=== PATIENT | male | born 1945 | race Caucasian/White ===

== ENCOUNTER 2024-07-12 18:39 | Outpatient (REF) | payer BC, MEDICAID, SELFPAY ==
[2024-07-12 20:00] LABS: Abs Immature Grans 0.11 10^3/uL (0.0-0.06); Absolute Basophil Count 0.05 10^3/uL (0.0-0.2); Absolute Monocyte Count 0.86 10^3/uL (0.1-0.8); Absolute Neutrophil Count 2.52 10^3/uL (1.2-6.7); Basophils % 0.9 %; Eosinophils % 8.6 %; HCT 41.6 % (40.0-50.0); HGB 13.6 g/dL (13.5-17.5); Immature Grans % 1.9 %; Lymphocytes % 30.8 %; MCH 31.2 pg (27.0-33.0); MCHC 32.7 % (32.0-36.0); MCV 95 fL (80-95); MPV 10.1 fL (8.0-11.0); Monocytes % 14.7 %; Neutrophils % 43.1 %; Platelet Count 320 10^3/uL (130-400); RBC 4.36 10^6/uL (4.36-5.78); RDW 13.6 % (11.8-14.1); RDW-SD 48.2 fL; WBC 5.84 10^3/uL (4.4-10.8)
[2024-07-12 20:12] LABS: Iron 52 ug/dL (65-175); Total Iron Binding Capacity 214 ug/dL (250-450)
[2024-07-12 20:25] LABS: Hemoglobin A1C 5.7 % (<5.7)
[2024-07-12 20:47] LABS: ALT 24 U/L (16-63); AST 20 U/L (15-37); Albumin 3.7 g/dL (3.4-5.0); Alkaline Phosphatase 131 U/L (46-116); Anion Gap 9.3 mmol/L (3-11); BUN 21 mg/dL (7-18); Bilirubin, Total 0.33 mg/dL (0.2-1.0); CO2 28.7 mmol/L (21.0-32.0); CREATININE 1.2 mg/dL (0.70-1.30); Calcium 9.6 mg/dL (8.5-10.1); Chloride 105 mmol/L (98-107); Estimated GFR 62.29 (mL/min/1.73m2); Folate 14.6 ng/mL (8.6-20.0); Glucose 104 mg/dL (74-106); Magnesium 2.3 mg/dL (1.8-2.4); Potassium 4.2 mmol/L (3.5-5.1); Sodium 143 mmol/L (136-145); Total Protein 7.8 g/dL (6.4-8.2); Vitamin B12 465 pg/mL (193-986); Vitamin D 25 Total 17.5 ng/mL (30-100)
[2024-07-12 21:17] LABS: NT-proBNP 99 pg/mL (<300)
[2024-07-13 15:29] LABS: Ferritin 800 ng/mL (26-388)
[2024-07-16 08:45] LABS: FSH 8.7 mIU/mL (See Note)
== END 2024-07-12 18:40 | disposition home or self-care (01) ==
LOC: LBN 18:39
PROVIDERS: PCP Legal Medicine; Visit Provider Nurse Practitioner Gerontology
DX: D51.9 Vitamin B12 deficiency anemia, unspecified (principal); E78.5 Hyperlipidemia, unspecified; I11.9 Hypertensive heart disease without heart failure; E83.42 Hypomagnesemia; R73.09 Other abnormal glucose; G89.4 Chronic pain syndrome; D52.9 Folate deficiency anemia, unspecified; R53.82 Chronic fatigue, unspecified
CPT/HCPCS: 80053; 82306; 82607; 82728; 82746; 83001; 83036; 83540; 83550; 83735; 83880; 84443; 85025

== ENCOUNTER 2024-08-30 22:35 | Outpatient (REF) | payer BC, MEDICAID, SELFPAY ==
[2024-08-30 18:15] LABS: Abs Immature Grans 0.29 10^3/uL (0.0-0.06); Absolute Basophil Count 0.05 10^3/uL (0.0-0.2); Absolute Eosinophil Count 0.15 10^3/uL (0.0-0.7); Absolute Neutrophil Count 2.76 10^3/uL (1.2-6.7); Basophils % 0.8 %; Eosinophils % 2.3 %; HCT 39.7 % (40.0-50.0); HGB 12.9 g/dL (13.5-17.5); Immature Grans % 4.4 %; Lymphocytes % 37.6 %; MCHC 32.5 % (32.0-36.0); MCV 95 fL (80-95); MPV 10.7 fL (8.0-11.0); Monocytes % 13.5 %; Neutrophils % 41.4 %; Platelet Count 240 10^3/uL (130-400); RBC 4.16 10^6/uL (4.36-5.78); RDW 13.2 % (11.8-14.1); RDW-SD 46.4 fL; WBC 6.65 10^3/uL (4.4-10.8)
[2024-08-30 18:32] LABS: Iron 55 ug/dL (65-175); Total Iron Binding Capacity 241 ug/dL (250-450); Transferrin Sat 23 % (20-55)
[2024-08-30 18:33] LABS: Bilirubin Negative (Negative); Blood Negative (Negative); Clarity Clear (Clear); Glucose Negative (Negative); Ketones Negative (Negative); Leukocyte Esterase Negative (Negative); Nitrite Negative (Negative); Specific Gravity 1.025 (1.005-1.025); Urobilinogen 0.2 mg/dL (Up to 0.2)
[2024-08-30 18:34] LABS: VALPROIC ACID 34.6 ug/mL
[2024-08-30 18:45] LABS: ALT 39 U/L (16-63); AST 24 U/L (15-37); Albumin 3.5 g/dL (3.4-5.0); Alkaline Phosphatase 115 U/L (46-116); Anion Gap 9.1 mmol/L (3-11); BUN 30 mg/dL (7-18); Bilirubin, Total 0.3 mg/dL (0.2-1.0); CO2 29.9 mmol/L (21.0-32.0); CREATININE 1.4 mg/dL (0.70-1.30); Calcium 8.6 mg/dL (8.5-10.1); Chloride 105 mmol/L (98-107); Estimated GFR 51.77 (mL/min/1.73m2); Ferritin 950 ng/mL (26-388); Glucose 100 mg/dL (74-106); Potassium 3.9 mmol/L (3.5-5.1); Sodium 144 mmol/L (136-145); Total Protein 7.4 g/dL (6.4-8.2)
== END 2024-08-30 22:36 | disposition home or self-care (01) ==
LOC: LBN 22:35
PROVIDERS: PCP Legal Medicine; Visit Provider Nurse Practitioner Gerontology
DX: N39.0 Urinary tract infection, site not specified (principal); E87.8 Other disorders of electrolyte and fluid balance, not elsewhere classified; D63.1 Anemia in chronic kidney disease
CPT/HCPCS: 80053; 80164; 81003; 82728; 83540; 83550; 85025; 87086

== ENCOUNTER 2024-10-29 18:27 | Outpatient (REF) | payer BC, MEDICAID, SELFPAY ==
[2024-10-29 18:33] LABS: HCT 41.2 % (40.0-50.0); HGB 13.7 g/dL (13.5-17.5); MCH 32.6 pg (27.0-33.0); MCHC 33.3 % (32.0-36.0); MCV 98 fL (80-95); Platelet Count 264 10^3/uL (130-400); RDW 13.6 % (11.8-14.1); RDW-SD 49.1 fL; WBC 9.74 10^3/uL (4.4-10.8)
[2024-10-29 18:43] LABS: VALPROIC ACID 30.8 ug/mL
[2024-10-29 18:50] LABS: ALT 86 U/L (16-63); AST 59 U/L (15-37); Albumin 3.5 g/dL (3.4-5.0); Alkaline Phosphatase 75 U/L (46-116); Anion Gap 10.2 mmol/L (3-11); BUN 44 mg/dL (7-18); Bilirubin, Total 0.3 mg/dL (0.2-1.0); CO2 29.8 mmol/L (21.0-32.0); CREATININE 1.4 mg/dL (0.70-1.30); Calcium 9.4 mg/dL (8.5-10.1); Chloride 110 mmol/L (98-107); Estimated GFR 51.77 (mL/min/1.73m2); Glucose 94 mg/dL (74-106); Potassium 4.2 mmol/L (3.5-5.1); Sodium 150 mmol/L (136-145); Total Protein 7.5 g/dL (6.4-8.2)
[2024-10-29 19:06] LABS: Absolute Neutrophil Count 4.68 10^3/uL (1.2-6.7); Bands % 2 %
[2024-10-29 19:07] LABS: Diff Comment Manual Differential; Myelocytes % 2; Promyelocytes % 1; RBC Morphology Normal
[2024-10-29 19:08] LABS: Absolute Lymphocyte Count 2.73 10^3/uL (1.2-3.4); Absolute Monocyte Count 1.85 10^3/uL (0.1-0.8)
== END 2024-10-29 18:28 | disposition home or self-care (01) ==
LOC: LBN 18:27
PROVIDERS: PCP Legal Medicine; Visit Provider Nurse Practitioner Gerontology
DX: F43.21 Adjustment disorder with depressed mood (principal); F33.1 Major depressive disorder, recurrent, moderate; E87.8 Other disorders of electrolyte and fluid balance, not elsewhere classified; D63.1 Anemia in chronic kidney disease
CPT/HCPCS: 80053; 80164; 85025

== ENCOUNTER 2024-11-04 14:15 | Inpatient (IN) | payer BC, MEDICARE, MEDICAID, SELFPAY ==
[2024-11-04] VITALS (58 sets, daily range): BP systolic 89–130; BP diastolic 53–93; PULSE 44–139; RESP 14–104; TEMP 35.9–38.2; O2SAT 86–100
--- NOTE | 2024-11-04 14:37 | W.ED.GENAD ---
Discharge Plan Disposition Patient Disposition: Admit to [facility] Condition: Fair Discharge Details Clinical Impression: Acute renal insufficiency, Acute hypernatremia, Altered mental status, Dementia, Bilateral pneumonia, Fecal impaction Primary Care Provider: Tiffanie Houston ED Provider: Puja Reyes Home Meds and New Rx's Prescriptions: No Action torsemide 20 mg tablet 20 mg PO DAILY tamsulosin [Flomax] 0.4 mg capsule 0.4 mg PO QHS trazodone 50 mg tablet 25 mg PO QHS B-complex with vitamin C Capsule 1 cap PO DAILY divalproex [Depakote] 125 mg tablet,delayed release (DR/EC) 500 mg PO DAILY risperidone [Risperdal] 1 mg tablet 1 mg PO QHS donepezil 10 mg tablet 10 mg PO DAILY HPI General Date/Time Provider Initiated Documentation: 11/04/24 14:26. HPI Narrative: 79-year-old male with history of dementia and prostate cancer presents from nursing facility. Patient is on comfort measures. He has been nonverbal for the last several days and minimally responsive. He has had a fever. He has not been eating. Unable to arouse patient or get further history from him upon ED arrival. Related Data Home Medications ?Medication ?Instructions ?Recorded ?Confirmed B-complex with vitamin C 1 cap PO DAILY 11/04/24 11/04/24 divalproex 125 mg tablet,delayed 500 mg PO DAILY 11/04/24 11/04/24 release (Depakote) donepezil 10 mg tablet 10 mg PO DAILY 11/04/24 11/04/24 risperidone 1 mg tablet (Risperdal) 1 mg PO QHS 11/04/24 11/04/24 tamsulosin 0.4 mg capsule (Flomax) 0.4 mg PO QHS 11/04/24 11/04/24 torsemide 20 mg tablet 20 mg PO DAILY 11/04/24 11/04/24 trazodone 50 mg tablet 25 mg PO QHS 11/04/24 11/04/24 Allergies Allergy/AdvReac Type Severity Reaction Status Date / Time quetiapine AdvReac Unknown Verified 11/04/24 21:03 General Stated Complaint: Fever CATIE: 3 Review of Systems Narrative: Remainder of review of systems otherwise unobtainable due to patient's condition. Exam Narrative Exam Narrative: General: non-toxic, no respiratory distress, comfortable HEENT: normocephalic, atraumatic, lids and lashes normal, no conjunctival injection, dry oral mucosa Card: Tachycardic, regular, S1S2, no murmurs, rubs, or gallops Lungs: Minimal air exchange, clear to auscultation bilaterally. no wheezes, rales, rhonchi, or retractions Abd: soft, non-tender, non-distended, normal bowel sounds, no rebound or guarding, no peritoneal signs Musculoskeletal: Not following commands, no clubbing, cyanosis, or edema Neurologic: Unresponsive, occasionally moaning Psych: Unresponsive Skin: no petechiae, no lesions, warm and dry Course Reevaluation(s) Reevaluation: 1600-rate rate has improved. Oxygen saturation has improved. He remains on oxi- mask. Remains minimally responsive to pain relief. Awaiting family arrival. Reevaluation #2: I had long discussion with patient's son as well as (who was on phone). They would like any possible reversible medical conditions treated. Will proceed with d5W infusion for treatment of hypernatremia and CT for further evaluation. They would like patientn admitted to the hospital for further medical treatment. Vital Signs Vital signs: Vital Signs Temperature 38.2 C H 11/04/24 14:17 Pulse 108 H 11/04/24 14:17 Respiratory Rate 25 H 11/04/24 14:17 Blood Pressure 108/81 11/04/24 14:17 Pulse Oximetry 86 L 11/04/24 14:17 Temperature 38.2 C H 11/04/24 14:17 Temperature Source Temporal Artery Scan 11/04/24 14:17 Pulse 108 H 11/04/24 14:17 Respiratory Rate 25 H 11/04/24 14:17 Blood Pressure 108/81 11/04/24 14:17 Pulse Oximetry 86 L 11/04/24 14:17 Oxygen Delivery Method Room Air 11/04/24 14:17 Oxygen Flow Rate 0 11/04/24 14:17 Comment 2L oxygen initiated 11/04/24 14:17 Medical Decision Making 79-year-old male with history of dementia and prostate cancer presents from nursing facility. Patient is not responsive at this time. He occasionally moans. He is requiring supplemental oxygen to keep sats greater than 80. Nasal cannula was in place however patient was breathing through his mouth. OxiMax was applied. Nursing was able to communicate with son who is DPOA as well as the . They are concerned that patient may have contracted COVID at the facility or other reversible causes of illness as he has a dramatic decline in functioning over the last 2 weeks. They would like laboratory studies, xry and covid testing. IV Tylenol and IVF ordered. Laboratory studies show patient has significantly elevated white count, elevated acid, elevated troponin, elevated sodium, elevated BUN/creatinine. Chest x-ray was concerning for possible pneumonia. 2 L IV fluid were given for possible sepsis but elevated lactic acid and elevated white count returned. Empiri Zosyn was given. Repeat BMP shows that sodium went from 161-160. Family arrived and we had discussion on goals of care. They would like further evaluation and medical treatment. D5W ordered. CT scans ordered. CT head unremarkable. CT chest abdomen pelvis shows bilateral pneumonia as well as fecal impaction. On reassessment patient's heart rate has been trending up. He is having some mildly low blood pressure. Additional liter of normal saline IV fluid bolus was ordered. His heart rate did improve and blood pressure also improved. Case discussed with hospitalist who will admit to their service. I did confirm with patient's son prior to admission would not like IV pressors. Critical Care Time Critical Care Time Attestation: CRITICAL CARE Total critical care time: 65 minutes Critical care interventions: IV fluids, IV antibiotics, family discussion, frequent reassessment, hospitalist consultation Total critical care time included the assessment and discussions as described in the emergency department history, physical, and medical decision making. The critical care time provided excludes separately billable procedures. [facility] All Active Problems (Updated 11/04/24 @ 21:08 by Puja Reyes MD) Fecal impaction (Acute) Bilateral pneumonia (Acute) Dementia (Chronic) Altered mental status (Acute) Acute hypernatremia (Acute) Acute renal insufficiency (Acute) Social History Smoking/Tobacco Use Status: Never Smoking risk assessment performed?: Yes Alcohol Intake: never Substance use type: does not use Housing: assisted
--- NOTE | 2024-11-04 15:00 | DI.RAD_ITS ---
Exam(s) XR PORTABLE CHEST AP EXAM: XR PORTABLE CHEST AP CLINICAL HISTORY: hypoxia TECHNIQUE: 2D digital imaging was performed of the chest. One image was obtained. An AP view was obtained. COMPARISON: No exams were available for comparison FINDINGS: MEDIASTINUM: Normal. HEART: Normal. PULMONARY VASCULATURE: Normal. LUNGS: There is an opacity seen in the right mid lung. There is also opacity seen in the retrocardiac region in the medial aspect of the left lung base. PLEURAL SPACE: No pleural effusion or pneumothorax. BONE:Within normal limits for the patient's age. OTHER FINDINGS:Normal. IMPRESSION: Airspace opacities seen in the right mid lung in the left lung base. This may represent pneumonia or atelectasis. Pulmonary edema cannot be excluded. Please correlate clinically. DATA REPOSITORY: RADIATION DOSE DELIVERED:
[2024-11-04] MEDS: Normal Saline 1,000 ML 1000 ML IV ×3 (15:30→20:49)
[2024-11-04] MEDS: ACETAMINOPHEN 1,000 MG/100 ML BAG 400 MG IVPB (15:30)
[2024-11-04 15:40] LABS: Lactate 3.7 mmol/L (<or=2.0)
[2024-11-04 15:41] LABS: Abs Immature Grans 2.81 10^3/uL (0.0-0.06); HCT 45.3 % (40.0-50.0); HGB 14.5 g/dL (13.5-17.5); MCH 32.3 pg (27.0-33.0); MCV 101 fL (80-95); Platelet Count 222 10^3/uL (130-400); RBC 4.49 10^6/uL (4.36-5.78); RDW 13.7 % (11.8-14.1); RDW-SD 51.2 fL
[2024-11-04 15:53] LABS: WBC 39.85 10^3/uL (4.4-10.8)
[2024-11-04 15:55] LABS: Absolute Lymphocyte Count 1.99 10^3/uL (1.2-3.4); Absolute Monocyte Count 1.99 10^3/uL (0.1-0.8); Absolute Neutrophil Count 35.07 10^3/uL (1.2-6.7); Atypical Lymphocytes % 1 %; Bands % 5 %; Diff Comment Manual Differential; Metamyelocytes % 1; Myelocytes % 1; RBC Morphology Normal
[2024-11-04 16:08] LABS: ALT 55 U/L (16-63); AST 26 U/L (15-37); Alkaline Phosphatase 73 U/L (46-116); Anion Gap 13.2 mmol/L (3-11); Bilirubin, Total 0.8 mg/dL (0.2-1.0); CO2 29.8 mmol/L (21.0-32.0); CREATININE 2.7 mg/dL (0.70-1.30); Calcium 9.8 mg/dL (8.5-10.1); Chloride 118 mmol/L (98-107); Estimated GFR 23.54 (mL/min/1.73m2); Glucose 194 mg/dL (74-106); Potassium 4.1 mmol/L (3.5-5.1); Total Protein 8.1 g/dL (6.4-8.2)
[2024-11-04 16:10] LABS: BUN 92 mg/dL (7-18); Sodium 161 mmol/L (136-145); Troponin I 112 ng/L (<or=76)
[2024-11-04 16:23] LABS: COVID-19 PCR Negative (Negative); Influenza A PCR Negative (Negative); Influenza B PCR Negative (Negative); RSV PCR Negative (Negative)
[2024-11-04 16:24] LABS: Source Nasopharynx
[2024-11-04] MEDS: PIPERACILLIN/TAZO 4.5 GM in Normal Saline 100 ML IVPB (17:14)
[2024-11-04 17:37] LABS: Troponin I 104 ng/L (<or=76)
[2024-11-04 18:41] LABS: Anion Gap 9.3 mmol/L (3-11); CO2 28.7 mmol/L (21.0-32.0); CREATININE 2.6 mg/dL (0.70-1.30); Calcium 8.4 mg/dL (8.5-10.1); Chloride 122 mmol/L (98-107); Estimated GFR 24.63 (mL/min/1.73m2); Glucose 200 mg/dL (74-106); Potassium 3.8 mmol/L (3.5-5.1)
[2024-11-04 18:46] LABS: BUN 90 mg/dL (7-18); Sodium 160 mmol/L (136-145)
[2024-11-04 18:58] LABS: Lactate 2.6 mmol/L (<or=2.0)
[2024-11-04 19:00] LABS: Troponin I 117 ng/L (<or=76)
[2024-11-04 19:14] LABS: Bilirubin Negative (Negative); Blood Negative (Negative); Clarity Clear (Clear); Glucose Negative (Negative); Ketones Negative (Negative); Leukocyte Esterase Negative (Negative); Nitrite Negative (Negative); Specific Gravity >= 1.030 (1.005-1.025); Urobilinogen 0.2 mg/dL (Up to 0.2)
--- NOTE | 2024-11-04 19:15 | DI.CT_ITS ---
Exam(s) CT CHEST/ABD/PEL WO EXAM: CT CHEST/ABD/PEL WO CLINICAL HISTORY: AMS, fever. TECHNIQUE: Imaging Protocol: Axial computed tomography images with coronal and sagittal reformatted images were created and reviewed. Computer aided detection (CAD) was utilized. CONTRAST MATERIAL: Noncontrast Oral: no COMPARISON: CR XR PORTABLE CHEST AP from 11/04/2024 FINDINGS: CHEST: Pulmonary parenchyma: There are bilateral infiltrates in both upper and lower lobes. There is consolidation the medial lung bases bilaterally.. No dominant measurable mass. Tracheobronchial tree: No bronchiectasis. No mucous plugging.No bronchial wall thickening. Pleura: No effusion or pneumothorax. Mediastinum: Within normal limits. Pulmonary arteries: No visible emboli. Cardiovascular: Normal heart size. No pericardial effusion. Thoracic aorta non-dilated. Bones: Mild scoliosis. Degenerative changes. No lytic or blastic lesions.No compression fractures. Soft tissues: Unremarkable. ABDOMEN and PELVIS: Liver: Normal density. No suspicious mass. Gallbladder and biliary tract: No evidence of stones or wall thickening. No biliary dilatation. Pancreas: Normal density, no abnormal calcifications or inflammatory process. Spleen: Normal. Kidneys: Normal size, contour and axis. Tiny nonobstructing calculi bilaterally. No obstructive uropathy. No suspicious masses seen. Adrenal glands: No masses seen. Aorta: Abdominal portion non-dilated. Lymph nodes: Within normal limits. Soft tissues: Unremarkable. Bladder: Unremarkable. Bowel: No obstruction or bowel wall thickening. There is a large quantity of stool distending the rectum. Increased stool also present in sigmoid colon. Moderate stool proximally. No bowel wall thickening. Stomach and small bowel are unremarkable. Peritoneal cavity: No ascites. No focal collection. No mesenteric inflammatory response. No free air. Bones: Degenerative changes in the lumbar spine. Reproductive organs: prostate mildly enlarged. IMPRESSION: Bilateral pneumonia with consolidation at both lung bases. Large quantity of stool distending the rectum. No evidence of bowel obstruction. No bowel wall thickening. The preliminary [facility] report was reviewed. RADIATION DOSE DELIVERED: 625.96mGy.cm Total DLP DATA REPOSITORY: All CT scans at this facility are submitted to the National Radiology Data Registry (NRDR) Dose Index Registry (DIR) with the [employer] ([employer]). RADIATION OPTIMIZATION: All CT scans at this facility use at least one of these dose optimization techniques: automated exposure control; mA and/or kV adjustment per patient size (includes targeted exams where dose is matched to clinical indication); or iterative reconstruction.
--- NOTE | 2024-11-04 19:15 | DI.CT_ITS ---
Exam(s) CT HEAD WO EXAM: CT HEAD WO CLINICAL HISTORY: AMS. TECHNIQUE: Imaging Protocol: Axial computed tomography images with coronal and sagittal reformatted images were created and reviewed COMPARISON: No exams were available for comparison FINDINGS: Ventricles and Extra axial spaces: Normal in size and morphology for the patient's age. Hemorrhage: None. Cerebral parenchyma: No evidence of acute infarct or mass. There is mild atrophy. There are mild white matter changes of microvascular disease. Midline shift: None. Brainstem/Cerebellum: Normal. Calvarium: Normal. Visualized Paranasal sinuses:Clear. Mastoids: Clear. Soft Tissues: Unremarkable. ORBITS: Unremarkable. PITUITARY: Not enlarged. IMPRESSION: No acute intracranial process. RADIATION DOSE DELIVERED: 891.56mGy.cm Total DLP DATA REPOSITORY: All CT scans at this facility are submitted to the National Radiology Data Registry (NRDR) Dose Index Registry (DIR) with the [employer] (A[employer]). RADIATION OPTIMIZATION: All CT scans at this facility use at least one of these dose optimization techniques: automated exposure control; mA and/or kV adjustment per patient size (includes targeted exams where dose is matched to clinical indication); or iterative reconstruction.
[2024-11-04 19:22] LABS: Bacteria Negative HPF (Negative); C & S Indicated? No; Casts 3-5 Hyaline LPF (Negative); Crystals Negative HPF (Negative); Epithelial Cells Negative HPF (Negative); Mucus Heavy (Negative); Other Cells Rare Transitional (Negative); RBC 0-2 HPF (0-2); WBC Negative HPF (0-5)
--- NOTE | 2024-11-04 20:16 | DI.[facility]_ITS ---
PROCEDURE INFORMATION: Exam: CT Head Without Contrast Exam date and time: 11/04/2024 7:32 PM Age: 79 years old Clinical indication: Altered mental status/memory loss; Other: AMS TECHNIQUE: Imaging protocol: Computed tomography of the head without contrast. Radiation optimization: All CT scans at this facility use at least one of these dose optimization techniques: automated exposure control; mA and/or kV adjustment per patient size (includes targeted exams where dose is matched to clinical indication); or iterative reconstruction. COMPARISON: No relevant prior studies available. FINDINGS: Brain: Cerebral volume loss noted. Scattered areas of decreased attenuation in the deep periventricular white matter consistent with small vessel ischemic change. No evidence for acute intracranial hemorrhage. Cerebral ventricles: No ventriculomegaly. Paranasal sinuses: Visualized sinuses are unremarkable. No fluid levels. Mastoid air cells: Visualized mastoid air cells are well aerated. Bones: Unremarkable. No acute fracture. Soft tissues: Unremarkable. IMPRESSION: Senescent changes noted. No acute intracranial abnormality. Dictated and Authenticated by: Phylicia Smiley MD. Orderin Eric Luo MD
[2024-11-04] MEDS: DEXTROSE 5%-WATER 1,000 ML 75 ML IV (20:23)
--- NOTE | 2024-11-04 20:28 | DI.[facility]AD_ITS ---
PROCEDURE INFORMATION: Exam: CT Chest Without Contrast; Diagnostic Exam date and time: 11/04/2024 7:34 PM Age: 79 years old Clinical indication: Fever, AMS TECHNIQUE: Imaging protocol: Diagnostic computed tomography of the chest without contrast. 3D rendering (Not supervised by radiologist): MIP and/or 3D reconstructed images were created by the technologist. Radiation optimization: All CT scans at this facility use at least one of these dose optimization techniques: automated exposure control; mA and/or kV adjustment per patient size (includes targeted exams where dose is matched to clinical indication); or iterative reconstruction. COMPARISON: CR XR PORTABLE CHEST AP 11/04/2024 3:22 PM FINDINGS: Lungs: There are coarse bibasilar airspace markings with air bronchogram formation consistent with consolidation. There is patchy ground-glass pneumonitis in the left lower lobe. There are some patchy ill-defined nodular airspace densities in the upper lobes, left worse than right. Pleural spaces: Unremarkable. No pneumothorax. No pleural effusion. Heart: Unremarkable. No cardiomegaly. No pericardial effusion. Lymph nodes: Unremarkable. No enlarged lymph nodes. Vasculature: Unremarkable. No aortic aneurysm. Bones/joints: Unremarkable. No acute fracture. Soft tissues: Unremarkable. IMPRESSION: Bibasilar pneumonia with patchy upper lobe involvement, left worse than right. PROCEDURE INFORMATION: Exam: CT Abdomen And Pelvis Without Contrast Exam date and time: 11/04/2024 7:34 PM Age: 79 years old Clinical indication: Fever, AMS TECHNIQUE: Imaging protocol: Computed tomography of the abdomen and pelvis without contrast. 3D rendering (Not supervised by radiologist): MIP and/or 3D reconstructed images were created by the technologist. Radiation optimization: All CT scans at this facility use at least one of these dose optimization techniques: automated exposure control; mA and/or kV adjustment per patient size (includes targeted exams where dose is matched to clinical indication); or iterative reconstruction. COMPARISON: CR XR PORTABLE CHEST AP 11/04/2024 3:22 PM FINDINGS: Liver: Normal. No mass. Gallbladder and biliary ducts: Normal. No calcified stones. No ductal dilation. Pancreas: Normal. No ductal dilation. Spleen: Normal. No splenomegaly. Adrenal glands: Normal. No mass. Kidneys and ureters: There are small bilateral nonobstructing renal calculi, probable mild nephrocalcinosis. Stomach and bowel: Moderate fecal retention pattern. The rectum is distended with fecal material, 8.2 cm. Appendix: No evidence of appendicitis. Intraperitoneal space: Unremarkable. No free air. No significant fluid collection. Vasculature: Mild atherosclerotic change noted in the vasculature. Lymph nodes: Unremarkable. No enlarged lymph nodes. Urinary bladder: Unremarkable as visualized. Reproductive: Prostate enlarged, 5.3 cm. Bones/joints: Moderate lumbar spondylosis. Soft tissues: Unremarkable. IMPRESSION: Changes of constipation with concern for fecal impaction. Dictated and Authenticated by: Phylicia Smiley MD. Orderin Eric Luo MD
[2024-11-04 20:52] LABS: VALPROIC ACID 10.7 ug/mL
--- NOTE | 2024-11-04 21:18 | W.PM.HP.N ---
Date of service: 11/04/24 Time of Service: 21:19 Assessment and Plan Assessment and plan (1) Septic shock: Start date: 11/04/24 Status: Acute Assessment and plan: This is a 79-year-old gentleman who resides at a local alf being ill for the last 2 weeks with decreased intake presenting with septic shock responsive to IV fluid resuscitation and treatment of possible sources including bilateral pneumonia and UTI with a history of prostate cancer untreated. His son who is the DPOA is present and will stay with the patient because of his agitated dementia. Patient does not have a Oshea catheter and is able to urinate on his own in the past but this may be considered if he is not having adequate measure of output. He has had no history of CAD but does have a slightly elevated troponin. He does have tachycardia with irregularity by exam but is not on telemetry because of DNR/DNI status and wanting to minimize lines. He will continue on IV cefepime and vancomycin for his pneumonia and IV D5W adjusting rate to output and response clinically and with labs. He does have hypernatremia and elevated renal functions. Son is okay with echocardiogram if needed to assess cardiac status as we rehydrate. He does not want pressor agents. He has a DNR/DNI. (2) Bilateral pneumonia: Start date: 11/04/24 Status: Acute Assessment and plan: With new oxygen needs. Continue O2 supplementation as needed with IV cefepime and vancomycin adjusted to renal function. Follow-up blood cultures. (3) Acute hypernatremia: Start date: 11/04/24 Status: Acute Assessment and plan: Trend labs as rehydrate with D5W. (4) Fecal impaction: Start date: 11/04/24 Status: Acute Assessment and plan: Cathartics as needed. Disimpaction and enema if needed. (5) Complicated UTI (urinary tract infection): Start date: 11/04/24 Status: Acute Assessment and plan: Follow-up on urine culture and continue IV antibiotics with cefepime and vancomycin for pneumonia which should cover this problem. If he is obstructed this should be treated with Oshea catheter. (6) JOSE (acute kidney injury): Start date: 11/04/24 Status: Acute Assessment and plan: Trend labs as be gently IV hydrate. (7) Acute hyperglycemia: Start date: 11/04/24 Status: Acute Assessment and plan: Glucometer measurements and coverage if needed with sensitive sliding scale short acting insulin. He is not chronically on treatment for diabetes. This most likely secondary to stress. (8) Elevated troponin level not due to acute coronary syndrome: Start date: 11/04/24 Status: Acute Assessment and plan: Follow-up troponin in the morning. This appears to be flat and secondary to acute sepsis with shock. (9) Dementia: Status: Chronic Assessment and plan: Unsure of type of dementia but assumed Alzheimer's disease by patient's son. Continue outpatient medical therapy. History of Present Illness History of Present Illness Chief Complaint: Unexplained decline over the last 2 weeks at alf. Narrative: This is a 79-year-old male patient who resides at the local alf who is had a decline of the last 2 weeks with becoming nonverbal, having decreased intake and thought to be on comfort measures with minimal intervention at the local alf. The family noticed the patient's decline in health and decreased intake as well as nonverbal state. They said that the patient is a DNR/DNI but they did want treatable, acute problems to be aggressively addressed and treated. They were somewhat disappointed that they were not notified that the patient was declining. is accompanied by his son who gives recent history with the patient being nonverbal. He does moan at times in the ED and did respond to IV fluids with improved blood pressure and a decreased heart rate. He has on oxygen supplementation which is new. In the ED he was found to have a bilateral lower lobe pneumonia and probable UTI with a history of prostate cancer which was not treated by patient's choice. Upon presentation to the ED, the patient's heart rate was over 120 with systolic blood pressure just below 90 at 89 and respirations 27. He was febrile. He had a markedly elevated WBC, elevated sodium at 160, elevated BUN and creatinine from baseline more than doubled as well as elevated troponin which appeared flat at about 117. He did meet sepsis criteria. Blood cultures and urine cultures were performed and patient was initiated on Zosyn which was switched to cefepime and vancomycin. He was on D5W for resuscitation with improvement in the ED and continuation with a gentle hydration once admitted to avoid fluid overload. Patient has no overt history of CAD or heart failure according to son but he has had peripheral edema on torsemide recently. No other complaints per patient or family other than patient's decline of which they were not informed. His is a nurse. His son is a DPOA and present at time of interview. Patient is a DNR/DNI as mentioned. Review of Systems Narrative: 13 point review of systems otherwise unrevealing or stable per history given by family. PFSH All Active Problems (Updated 11/05/24 @ 06:51 by Manuel Mustafa) Septic shock (Acute) Elevated troponin level not due to acute coronary syndrome (Acute) Acute hyperglycemia (Acute) JOSE (acute kidney injury) (Acute) Complicated UTI (urinary tract infection) (Acute) Fecal impaction (Acute) Bilateral pneumonia (Acute) Dementia (Chronic) Altered mental status (Acute) Acute hypernatremia (Acute) Acute renal insufficiency (Acute) Social History Smoking/Tobacco Use Status: Never Smoking risk assessment performed?: Yes Alcohol Intake: never Substance use type: does not use Housing: alf Meds Allergies and Home Medications Allergies Allergy/AdvReac Type Severity Reaction Status Date / Time quetiapine AdvReac Unknown Verified 11/04/24 21:03 Home Medications ?Medication ?Instructions ?Recorded ?Confirmed ?Type B-complex with vitamin C 1 cap PO DAILY 11/04/24 11/04/24 History divalproex 125 mg tablet,delayed 500 mg PO DAILY 11/04/24 11/04/24 History release (Depakote) donepezil 10 mg tablet 10 mg PO DAILY 11/04/24 11/04/24 History risperidone 1 mg tablet (Risperdal) 1 mg PO QHS 11/04/24 11/04/24 History tamsulosin 0.4 mg capsule (Flomax) 0.4 mg PO QHS 11/04/24 11/04/24 History torsemide 20 mg tablet 20 mg PO DAILY 11/04/24 11/04/24 History trazodone 50 mg tablet 25 mg PO QHS 11/04/24 11/04/24 History Exam Narrative Exam Narrative: General: Patient appears chronically ill, lying in bed with his mouth open groaning at times and O2 supplementation in place. He is not oriented to person, place or time. His eyes are closed and he occasionally moans. Otherwise he appears comfortable at bedrest. HEENT: Normocephalic, eyes with pupils equal and react to light specially, extraocular movement intact and sclera anicteric. Oropharynx with dry mucosa. Neck: Supple without JVD. Back: Kyphotic without CVA tenderness. Lungs: Aeration with bronchovesicular breath sounds diffusely, no increased expiratory phase or expiratory wheeze. No focalizing rales or rhonchi with decreased aeration of both bases. Occasional coarse crackle at the bases. Heart: Tachycardic with irregular rhythm, intermittent systolic murmur. No gallop or rub. Abdomen: Scaphoid contour, soft and nontender palpation with no palpable hepatosplenomegaly. No guarding or rebound. Bowel sounds positive in all quadrants. Genitalia/rectal: Exam deferred. Skin: Rough texture, normal color, warm and dry. Extremities: Without clubbing, cyanosis or grossly pitting edema of her lower extremities. Fair capillary refill. Skin changes with loss of hair but no hyperpigmentation or atrophy over lower extremities. Neuro: Cranial nerves II through XII appear grossly intact, no focal motor deficits with patient moving all extremities. No tremor. Psych: Patient is delirious not responding with full exam not possible. Results Imaging Imaging Studies: Exam: CT Head Without Contrast Exam date and time: 11/04/2024 7:32 PM Age: 79 years old Clinical indication: Altered mental status/memory loss; Other: AMS TECHNIQUE: Imaging protocol: Computed tomography of the head without contrast. Radiation optimization: All CT scans at this facility use at least one of these dose optimization techniques: automated exposure control; mA and/or kV adjustment per patient size (includes targeted exams where dose is matched to clinical indication); or iterative reconstruction. COMPARISON: No relevant prior studies available. FINDINGS: Brain: Cerebral volume loss noted. Scattered areas of decreased attenuation in the deep periventricular white matter consistent with small vessel ischemic change. No evidence for acute intracranial hemorrhage. Cerebral ventricles: No ventriculomegaly. Paranasal sinuses: Visualized sinuses are unremarkable. No fluid levels. Mastoid air cells: Visualized mastoid air cells are well aerated. Bones: Unremarkable. No acute fracture. Soft tissues: Unremarkable. IMPRESSION: Senescent changes noted. No acute intracranial abnormality. Exam: CT Chest Without Contrast; Diagnostic Exam date and time: 11/04/2024 7:34 PM Age: 79 years old Clinical indication: Fever, AMS COMPARISON: CR XR PORTABLE CHEST AP 11/04/2024 3:22 PM FINDINGS: Lungs: There are coarse bibasilar airspace markings with air bronchogram formation consistent with consolidation. There is patchy ground-glass pneumonitis in the left lower lobe. There are some patchy ill-defined nodular airspace densities in the upper lobes, left worse than right. Pleural spaces: Unremarkable. No pneumothorax. No pleural effusion. Heart: Unremarkable. No cardiomegaly. No pericardial effusion. Lymph nodes: Unremarkable. No enlarged lymph nodes. Vasculature: Unremarkable. No aortic aneurysm. Bones/joints: Unremarkable. No acute fracture. Soft tissues: Unremarkable. IMPRESSION: Bibasilar pneumonia with patchy upper lobe involvement, left worse than right. PROCEDURE INFORMATION: Exam: CT Abdomen And Pelvis Without Contrast Exam date and time: 11/04/2024 7:34 PM Age: 79 years old Clinical indication: Fever, AMS COMPARISON: CR XR PORTABLE CHEST AP 11/04/2024 3:22 PM FINDINGS: Liver: Normal. No mass. Gallbladder and biliary ducts: Normal. No calcified stones. No ductal dilation. Pancreas: Normal. No ductal dilation. Spleen: Normal. No splenomegaly. Adrenal glands: Normal. No mass. Kidneys and ureters: There are small bilateral nonobstructing renal calculi, probable mild nephrocalcinosis. Stomach and bowel: Moderate fecal retention pattern. The rectum is distended with fecal material, 8.2 cm. Appendix: No evidence of appendicitis. Intraperitoneal space: Unremarkable. No free air. No significant fluid collection. Vasculature: Mild atherosclerotic change noted in the vasculature. Lymph nodes: Unremarkable. No enlarged lymph nodes. Urinary bladder: Unremarkable as visualized. Reproductive: Prostate enlarged, 5.3 cm. Bones/joints: Moderate lumbar spondylosis. Soft tissues: Unremarkable. IMPRESSION: Changes of constipation with concern for fecal impaction. Labs 11/04/24 15:22 11/04/24 23:18 Labs: Laboratory Results - last 24 hr 11/04/24 11/04/24 11/04/24 15:22 15:30 16:15 WBC 39.85 H* RBC 4.49 Hgb 14.5 Hct 45.3 MCV 101 H MCH 32.3 MCHC 32.0 RDW 13.7 Plt Count 222 MPV 11.0 Immature Gran % See Differential Neutrophils % 83.0 Band Neutrophils % 5 Lymphocytes % 4.0 Atypical Lymphs % 1 Monocytes % 5.0 Eosinophils % 0.0 Basophils % 0.0 Metamyelocytes % 1 Myelocytes % 1 Nucleated RBC % 0.0 Absolute Neutrophils 35.07 H Absolute Lymphocytes 1.99 Absolute Monocytes 1.99 H Absolute Eosinophils 0.00 Absolute Basophils 0.00 RBC Morphology Normal VBG Lactate 3.7 H* Sodium 161 H* Potassium 4.1 Chloride 118 H Carbon Dioxide 29.8 Anion Gap 13.2 H BUN 92 H* Creatinine 2.7 H Est GFR (CKD-EPI 2020) 23.54 Glucose 194 H Calcium 9.8 Magnesium 3.0 H Total Bilirubin 0.8 AST 26 ALT 55 Alkaline Phosphatase 73 Troponin I 112 H* Total Protein 8.1 Albumin 3.0 L Urine Color Yellow Urine Clarity Clear Urine pH 5.0 Ur Specific [place] >= 1.030 H Urine Protein 30 H Urine Ketones Negative Urine Blood Negative Urine Nitrite Negative Urine Bilirubin Negative Urine Urobilinogen 0.2 Ur Leukocyte Esterase Negative Urine RBC 0-2 Urine WBC Negative Ur Epithelial Cells Negative Urine Crystals Negative Urine Bacteria Negative Urine Casts 3-5 Hyaline Urine Mucus Heavy Urine Other Rare Transitional Ur Culture Indicated? No Urine Glucose Negative Valproic Acid COVID-19 Source Nasopharynx SARS-CoV-2 (PCR) Negative Influenza Type A (PCR) Negative Influenza Type B (PCR) Negative RSV (PCR) Negative 11/04/24 11/04/24 11/04/24 17:10 18:22 18:44 WBC RBC Hgb Hct MCV MCH MCHC RDW Plt Count MPV Immature Gran % Neutrophils % Band Neutrophils % Lymphocytes % Atypical Lymphs % Monocytes % Eosinophils % Basophils % Metamyelocytes % Myelocytes % Nucleated RBC % Absolute Neutrophils Absolute Lymphocytes Absolute Monocytes Absolute Eosinophils Absolute Basophils RBC Morphology VBG Lactate 2.6 H* Sodium 160 H* Potassium 3.8 Chloride 122 H Carbon Dioxide 28.7 Anion Gap 9.3 BUN 90 H* Creatinine 2.6 H Est GFR (CKD-EPI 2020) 24.63 Glucose 200 H Calcium 8.4 L Magnesium Total Bilirubin AST ALT Alkaline Phosphatase Troponin I 104 H* 117 H* Total Protein Albumin Urine Color Urine Clarity Urine pH Ur Specific [place] Urine Protein Urine Ketones Urine Blood Urine Nitrite Urine Bilirubin Urine Urobilinogen Ur Leukocyte Esterase Urine RBC Urine WBC Ur Epithelial Cells Urine Crystals Urine Bacteria Urine Casts Urine Mucus Urine Other Ur Culture Indicated? Urine Glucose Valproic Acid COVID-19 Source SARS-CoV-2 (PCR) Influenza Type A (PCR) Influenza Type B (PCR) RSV (PCR) 11/04/24 20:22 WBC RBC Hgb Hct MCV MCH MCHC RDW Plt Count MPV Immature Gran % Neutrophils % Band Neutrophils % Lymphocytes % Atypical Lymphs % Monocytes % Eosinophils % Basophils % Metamyelocytes % Myelocytes % Nucleated RBC % Absolute Neutrophils Absolute Lymphocytes Absolute Monocytes Absolute Eosinophils Absolute Basophils RBC Morphology VBG Lactate Sodium Potassium Chloride Carbon Dioxide Anion Gap BUN Creatinine Est GFR (CKD-EPI 2020) Glucose Calcium Magnesium Total Bilirubin AST ALT Alkaline Phosphatase Troponin I Total Protein Albumin Urine Color Urine Clarity Urine pH Ur Specific [place] Urine Protein Urine Ketones Urine Blood Urine Nitrite Urine Bilirubin Urine Urobilinogen Ur Leukocyte Esterase Urine RBC Urine WBC Ur Epithelial Cells Urine Crystals Urine Bacteria Urine Casts Urine Mucus Urine Other Ur Culture Indicated? Urine Glucose Valproic Acid 10.7 COVID-19 Source SARS-CoV-2 (PCR) Influenza Type A (PCR) Influenza Type B (PCR) RSV (PCR) Last Vital Signs Temp 35.9 C L 11/04/24 20:35 Pulse 99 H 11/04/24 21:01 Resp 14 11/04/24 21:01 BP 104/62 11/04/24 21:01 Pulse Ox 100 11/04/24 21:01 Time Spent Time spent with Patient: >75 minutes Time was spent: preparing to see the patient(eg.review tests), obtaining and/or reviewing separately otained hiistory, ordering medications,tests, procedures, indepentently interpreting results, care coordination and other (Reviewing care plan with son.)
--- NOTE | 2024-11-04 22:06 | W.PCEDHO ---
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 Patient received morphine and Ativan at 1300 [facility] Most Recent Vital Signs Temperature 35.9 C L 11/04/24 20:35 Temperature Source Axillary 11/04/24 20:35 Pulse 104 H 11/04/24 21:15 Pulse 119 H 11/04/24 21:15 Respiratory Rate 15 11/04/24 21:15 Blood Pressure 105/69 11/04/24 21:15 Blood Pressure Mean 79 11/04/24 21:15 Pulse Oximetry 99 11/04/24 21:15 Oxygen Delivery Method Room Air 11/04/24 14:17 Oxygen Flow Rate 0 11/04/24 14:17 Comment 2L oxygen initiated 11/04/24 14:17 Allergies quetiapine Adverse Reaction (Verified 11/04/24 21:03) Unknown Precautions Isolation Standard precaution 11/04/24 20:41 Active Medications Generic Name Dose Route Start Last Admin Trade Name Freq PRN Reason Stop Dose Admin Dextrose/Water 1,000 mls @ 75 mls/hr 11/04/24 19:00 11/04/24 20:23 IV 75 mls/hr INFUSION DAVID Administration IV IV Catheter Type [Right Saline Lock Antecubital] IV Catheter Gauge [Right 20 Antecubital] Diagnostics 11/04/24 11/04/24 11/04/24 Range/Units 20:22 18:44 18:22 WBC (4.4-10.8) 10^3/uL RBC (4.36-5.78) 10^6/uL Hgb (13.5-17.5) g/dL Hct (40.0-50.0) % MCV (80-95) fL MCH (27.0-33.0) pg MCHC (32.0-36.0) % RDW (11.8-14.1) % Plt Count (130-400) 10^3/uL MPV (8.0-11.0) fL Immature Gran % Neutrophils % % Band Neutrophils % % Lymphocytes % % Atypical Lymphs % % Monocytes % % Eosinophils % % Basophils % % Metamyelocytes % Myelocytes % Nucleated RBC % (0.0-0.3) % Absolute Neutrophils (1.2-6.7) 10^3/uL Absolute Lymphocytes (1.2-3.4) 10^3/uL Absolute Monocytes (0.1-0.8) 10^3/uL Absolute Eosinophils (0.0-0.7) 10^3/uL Absolute Basophils (0.0-0.2) 10^3/uL RBC Morphology VBG Lactate 2.6 H* (<or=2.0) mmol/L Sodium 160 H* (136-145) mmol/L Potassium 3.8 (3.5-5.1) mmol/L Chloride 122 H (98-107) mmol/L Carbon Dioxide 28.7 (21.0-32.0) mmol/L Anion Gap 9.3 (3-11) mmol/L BUN 90 H* (7-18) mg/dL Creatinine 2.6 H (0.70-1.30) mg/dL Est GFR (CKD-EPI 2020) 24.63 (mL/min/1.73m2) Glucose 200 H (74-106) mg/dL Calcium 8.4 L (8.5-10.1) mg/dL Magnesium (1.8-2.4) mg/dL Total Bilirubin (0.2-1.0) mg/dL AST (15-37) U/L ALT (16-63) U/L Alkaline Phosphatase (46-116) U/L Troponin I 117 H* (<or=76) ng/L Total Protein (6.4-8.2) g/dL Albumin (3.4-5.0) g/dL Urine Color (Yellow) Urine Clarity (Clear) Urine pH (5-8) Ur Specific [place] (1.005-1.025) Urine Protein (Neg-Trace) mg/dL Urine Ketones (Negative) mg/dL Urine Blood (Negative) Urine Nitrite (Negative) Urine Bilirubin (Negative) Urine Urobilinogen (Up to 0.2) mg/dL Ur Leukocyte Esterase (Negative) Urine RBC (0-2) HPF Urine WBC (0-5) HPF Ur Epithelial Cells (Negative) HPF Urine Crystals (Negative) HPF Urine Bacteria (Negative) HPF Urine Casts (Negative) LPF Urine Mucus (Negative) Urine Other (Negative) Ur Culture Indicated? Urine Glucose (Negative) mg/dL Valproic Acid 10.7 ( - 150) ug/mL COVID-19 Source SARS-CoV-2 (PCR) (Negative) Influenza Type A (PCR) (Negative) Influenza Type B (PCR) (Negative) RSV (PCR) (Negative) 11/04/24 11/04/24 11/04/24 Range/Units 17:10 16:15 15:30 WBC (4.4-10.8) 10^3/uL RBC (4.36-5.78) 10^6/uL Hgb (13.5-17.5) g/dL Hct (40.0-50.0) % MCV (80-95) fL MCH (27.0-33.0) pg MCHC (32.0-36.0) % RDW (11.8-14.1) % Plt Count (130-400) 10^3/uL MPV (8.0-11.0) fL Immature Gran % Neutrophils % % Band Neutrophils % % Lymphocytes % % Atypical Lymphs % % Monocytes % % Eosinophils % % Basophils % % Metamyelocytes % Myelocytes % Nucleated RBC % (0.0-0.3) % Absolute Neutrophils (1.2-6.7) 10^3/uL Absolute Lymphocytes (1.2-3.4) 10^3/uL Absolute Monocytes (0.1-0.8) 10^3/uL Absolute Eosinophils (0.0-0.7) 10^3/uL Absolute Basophils (0.0-0.2) 10^3/uL RBC Morphology VBG Lactate (<or=2.0) mmol/L Sodium (136-145) mmol/L Potassium (3.5-5.1) mmol/L Chloride (98-107) mmol/L Carbon Dioxide (21.0-32.0) mmol/L Anion Gap (3-11) mmol/L BUN (7-18) mg/dL Creatinine (0.70-1.30) mg/dL Est GFR (CKD-EPI 2020) (mL/min/1.73m2) Glucose (74-106) mg/dL Calcium (8.5-10.1) mg/dL Magnesium (1.8-2.4) mg/dL Total Bilirubin (0.2-1.0) mg/dL AST (15-37) U/L ALT (16-63) U/L Alkaline Phosphatase (46-116) U/L Troponin I 104 H* (<or=76) ng/L Total Protein (6.4-8.2) g/dL Albumin (3.4-5.0) g/dL Urine Color Yellow (Yellow) Urine Clarity Clear (Clear) Urine pH 5.0 (5-8) Ur Specific [place] >= 1.030 H (1.005-1.025) Urine Protein 30 H (Neg-Trace) mg/dL Urine Ketones Negative (Negative) mg/dL Urine Blood Negative (Negative) Urine Nitrite Negative (Negative) Urine Bilirubin Negative (Negative) Urine Urobilinogen 0.2 (Up to 0.2) mg/dL Ur Leukocyte Esterase Negative (Negative) Urine RBC 0-2 (0-2) HPF Urine WBC Negative (0-5) HPF Ur Epithelial Cells Negative (Negative) HPF Urine Crystals Negative (Negative) HPF Urine Bacteria Negative (Negative) HPF Urine Casts 3-5 Hyaline (Negative) LPF Urine Mucus Heavy (Negative) Urine Other Rare Transitional (Negative) Ur Culture Indicated? No Urine Glucose Negative (Negative) mg/dL Valproic Acid ( - 150) ug/mL COVID-19 Source Nasopharynx SARS-CoV-2 (PCR) Negative (Negative) Influenza Type A (PCR) Negative (Negative) Influenza Type B (PCR) Negative (Negative) RSV (PCR) Negative (Negative) 11/04/24 Range/Units 15:22 WBC 39.85 H* (4.4-10.8) 10^3/uL RBC 4.49 (4.36-5.78) 10^6/uL Hgb 14.5 (13.5-17.5) g/dL Hct 45.3 (40.0-50.0) % MCV 101 H (80-95) fL MCH 32.3 (27.0-33.0) pg MCHC 32.0 (32.0-36.0) % RDW 13.7 (11.8-14.1) % Plt Count 222 (130-400) 10^3/uL MPV 11.0 (8.0-11.0) fL Immature Gran % See Differential Neutrophils % 83.0 % Band Neutrophils % 5 % Lymphocytes % 4.0 % Atypical Lymphs % 1 % Monocytes % 5.0 % Eosinophils % 0.0 % Basophils % 0.0 % Metamyelocytes % 1 Myelocytes % 1 Nucleated RBC % 0.0 (0.0-0.3) % Absolute Neutrophils 35.07 H (1.2-6.7) 10^3/uL Absolute Lymphocytes 1.99 (1.2-3.4) 10^3/uL Absolute Monocytes 1.99 H (0.1-0.8) 10^3/uL Absolute Eosinophils 0.00 (0.0-0.7) 10^3/uL Absolute Basophils 0.00 (0.0-0.2) 10^3/uL RBC Morphology Normal VBG Lactate 3.7 H* (<or=2.0) mmol/L Sodium 161 H* (136-145) mmol/L Potassium 4.1 (3.5-5.1) mmol/L Chloride 118 H (98-107) mmol/L Carbon Dioxide 29.8 (21.0-32.0) mmol/L Anion Gap 13.2 H (3-11) mmol/L BUN 92 H* (7-18) mg/dL Creatinine 2.7 H (0.70-1.30) mg/dL Est GFR (CKD-EPI 2020) 23.54 (mL/min/1.73m2) Glucose 194 H (74-106) mg/dL Calcium 9.8 (8.5-10.1) mg/dL Magnesium 3.0 H (1.8-2.4) mg/dL Total Bilirubin 0.8 (0.2-1.0) mg/dL AST 26 (15-37) U/L ALT 55 (16-63) U/L Alkaline Phosphatase 73 (46-116) U/L Troponin I 112 H* (<or=76) ng/L Total Protein 8.1 (6.4-8.2) g/dL Albumin 3.0 L (3.4-5.0) g/dL Urine Color (Yellow) Urine Clarity (Clear) Urine pH (5-8) Ur Specific [place] (1.005-1.025) Urine Protein (Neg-Trace) mg/dL Urine Ketones (Negative) mg/dL Urine Blood (Negative) Urine Nitrite (Negative) Urine Bilirubin (Negative) Urine Urobilinogen (Up to 0.2) mg/dL Ur Leukocyte Esterase (Negative) Urine RBC (0-2) HPF Urine WBC (0-5) HPF Ur Epithelial Cells (Negative) HPF Urine Crystals (Negative) HPF Urine Bacteria (Negative) HPF Urine Casts (Negative) LPF Urine Mucus (Negative) Urine Other (Negative) Ur Culture Indicated? Urine Glucose (Negative) mg/dL Valproic Acid ( - 150) ug/mL COVID-19 Source SARS-CoV-2 (PCR) (Negative) Influenza Type A (PCR) (Negative) Influenza Type B (PCR) (Negative) RSV (PCR) (Negative) 11/04/24 15:27 Blood Culture - Pending Blood 11/04/24 15:22 Blood Culture - Pending Blood Intake and Output - 24 Hour Total 11/04/24 14:07 thru 11/04/24 18:54 Intake Total 2210 Balance 2210 Weight 58.287 kg Intake: IV 2210 Falls Risk Assessment History of Falls No History 11/04/24 20:41 Fall Total Score 0 11/04/24 20:41 Level of Risk Standard/Low Risk 11/04/24 20:41 Problems (Last Reviewed 11/04/24 @ 21:19 by Manuel Mustafa) Elevated troponin level not due to acute coronary syndrome (Acute) Acute hyperglycemia (Acute) JOSE (acute kidney injury) (Acute) Complicated UTI (urinary tract infection) (Acute) Fecal impaction (Acute) Bilateral pneumonia (Acute) Dementia (Chronic) Acute hypernatremia (Acute) v v v v v v v v v Sending and/or Receiving Nurses: Please use comment section below to note any information pertinent to the patient hand-off not included above. Information / Comments:no questions. Report received from:Diana Garcia
[2024-11-04 23:40] LABS: Anion Gap 7.7 mmol/L (3-11); CO2 29.3 mmol/L (21.0-32.0); CREATININE 2.3 mg/dL (0.70-1.30); Calcium 8.2 mg/dL (8.5-10.1); Chloride 123 mmol/L (98-107); Estimated GFR 28.53 (mL/min/1.73m2); Glucose 219 mg/dL (74-106); Potassium 3.6 mmol/L (3.5-5.1)
[2024-11-04 23:43] LABS: BUN 86 mg/dL (7-18); Sodium 160 mmol/L (136-145)
[2024-11-05 00:41] LABS: TSH (W/Ref FT4) 0.68 uIU/mL (0.36-3.74)
[2024-11-05] MEDS: CEFEPIME 1 GM in Normal Saline 50 ML IVPB ×2 (00:46→13:22)
[2024-11-05] MEDS: Enoxaparin 30 MG/0.3 ML SYR SC (00:47)
[2024-11-05] MEDS: Insulin Aspart 300 UNITS/3 ML PEN SC (01:23)
[2024-11-05] MEDS: VANCOMYCIN/WATER (PEG) 1.5 GM/300 ML BAG IV (02:35)
[2024-11-05 02:39] VITALS: BP 103/80; PULSE 89; RESP 19; TEMP 36.2; O2SAT 92
[2024-11-05 06:59] LABS: HCT 38.2 % (40.0-50.0); HGB 12.1 g/dL (13.5-17.5); MCH 33.2 pg (27.0-33.0); MCHC 31.7 % (32.0-36.0); MCV 105 fL (80-95); MPV 11.4 fL (8.0-11.0); Platelet Count 173 10^3/uL (130-400); RBC 3.65 10^6/uL (4.36-5.78); RDW 13.8 % (11.8-14.1); RDW-SD 54.1 fL
[2024-11-05 07:23] LABS: Magnesium 2.7 mg/dL (1.8-2.4)
[2024-11-05 07:24] VITALS: BP 136/90; PULSE 79; RESP 17; TEMP 36.4; O2SAT 88
[2024-11-05 07:27] LABS: Troponin I 84 ng/L (<or=76)
[2024-11-05 08:00] LABS: WBC 33.78 10^3/uL (4.4-10.8)
[2024-11-05 08:37] VITALS: O2SAT 94
[2024-11-05 09:57] VITALS: O2SAT 93
--- NOTE | 2024-11-05 10:05 | INITIAL_ITS ---
Date of service: 11/05/24 Time of Service: 10:05 Care Management Initial Assmt Initial Assessment Reason for Hospitalization: Pneumonia Functional Status/Living Situation Patient Presentation: Daren was lying in bed with his eyes closed, accompanied by his son Joe when CM met with him. He was transferred from the [facility] yesterday after having been placed on Comfort Measures as he wished as described in his Advanced Directives. His family requested transfer to [facility] as the change in his condition had been sudden. They met with Kaycee Michelle from Palliative Care today and requested that Daren be placed on Comfort Measures here as well and remain at [facility] for end of life care. CM discussed this with Joe who was grateful for the visit with Kaycee and the support and guidance it afforded him and his family. Town of Residence: [place] Resides with: Other (SNF) Significant Other/Family: Out of area ([place]) Employment Status: Retired Instrumental Activities of Daily Living (ADLs): Requires support Medications Medication Management: No Issues/Barriers identified Advance Directives Advance Directives: Do you have an Advance Directive: AD On File at [facility]: N 08/30/24, 22:36 Date Asked 11/04/24 11/04/24, 14:22 AD Date Reviewed COLST On File at [facility] COLST Date Scanned Code Status Resuscitation Status DNR/DNI Portal Pt does not currently have a portal and education provided: No Portal Education: Other (unresponsive) Insurance Coverage/Financial Issues Insurance: Medicare /[facility] Care Team Visit Care Team Role Provider Type Bladimir Weeks MD [facility] STAFF PHYSICIAN Tiffanie Houston Primary Care Provider NON-[facility] STAFF PHYSICIAN Puja Reyes MD Emergency Provider [facility] STAFF PHYSICIAN Manuel Mustafa Admit Provider [facility] STAFF PHYSICIAN Attending Provider Discharge Potential Discharge Needs: Other (end of life care) Anticipated Barriers to Discharge: Medical Status Transportation: EMS Plan: Daren was admitted from the 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 When his condition declined his family wanted him transferred to the hospital to receive a full assessment. After meeting with Palliative Care, they reinstated Comfort Measure and requested that Daren remain at [facility] for end of life care. CM will follow and support Daren and his family through this difficult time. Social Determinants of Health Screening Will the Patient Participate in the Screening?: Unable to obtain PFSH All Active Problems (Updated 11/05/24 @ 17:35 by Kaycee Michelle NP) Advance care planning (Acute) End of life care (Acute) Comfort measures only status (Acute) Palliative care encounter (Acute) Alzheimer dementia (Acute) Discharge planning issues (Acute) Septic shock (Acute) Elevated troponin level not due to acute coronary syndrome (Acute) Acute hyperglycemia (Acute) JOSE (acute kidney injury) (Acute) Complicated UTI (urinary tract infection) (Acute) Fecal impaction (Acute) Bilateral pneumonia (Acute) Dementia (Chronic) Altered mental status (Acute) Acute hypernatremia (Acute) Acute renal insufficiency (Acute) Medical History (Updated 11/05/24 @ 17:35 by Kaycee Michelle NP) Seizure disorder Social History Smoking/Tobacco Use Status: Never Smoking risk assessment performed?: Yes Alcohol Intake: never Substance use type: does not use Housing: fpc
[2024-11-05] MEDS: DEXTROSE 5%-WATER 1,000 ML 200 ML IV (11:07)
[2024-11-05 11:36] VITALS: BP 87/50; PULSE 54; RESP 16; TEMP 36.4; O2SAT 94
[2024-11-05 11:45] VITALS: BP 122/86
[2024-11-05] MEDS: Normal Saline Flush 10 ML SYR IVP ×2 (14:09→19:56)
--- NOTE | 2024-11-05 14:59 | W.PM.PROGNOT ---
Date of Service Date of service: 11/05/24 Time of Service: 14:59 Assessment and Plan Assessment and plan (1) Septic shock: Start date: 11/04/24 Status: Acute Assessment and plan: On presentation septic shock responsive to IV fluid resuscitation. Goals of care include antibiotics but not intensive care/pressors per admission MD. Sources include bilateral pneumonia and UTI with a history of prostate cancer untreated. (2) Bilateral pneumonia: Start date: 11/04/24 Status: Acute Assessment and plan: With new hypoxic respiratory failure. Continue O2 supplementation as needed with IV cefepime and vancomycin adjusted to renal function. Follow-up blood cultures. (3) Acute hypernatremia: Start date: 11/04/24 Status: Acute Assessment and plan: Trend labs as rehydrate with D5W, increase rate and follow BMP in PM (4) Fecal impaction: Start date: 11/04/24 Status: Acute Assessment and plan: Laxatives ordered but not taking PO. Add suppository. Disimpaction and enema if needed. (5) Complicated UTI (urinary tract infection): Start date: 11/04/24 Status: Acute Assessment and plan: Follow-up on urine culture and continue IV antibiotics with cefepime and vancomycin for pneumonia which should cover UTI. Oshea is placed. (6) JOSE (acute kidney injury): Start date: 11/04/24 Status: Acute Assessment and plan: in setting of sepsis, follow (7) Elevated troponin level not due to acute coronary syndrome: Start date: 11/04/24 Status: Acute Assessment and plan: Improving. This is type 2 ischemia with pre-existing CAD and acute sepsis with shock. (8) Discharge planning issues: Status: Acute Assessment and plan: Patient had previous documents listing preference for comfort oriented care without hospitalization. Family did not have this understanding. Palliative consulted and discussing plan. We may transition to PHARMACY TECHNICIAN TRAINEE vs. limited illness-directed care. (9) Seizure disorder: Assessment and plan: valproate to IV while not taking po Subjective Subjective Patient reports: denies diarrhea, vomiting or fever Interval history since last seen: Patient not responsive. Not taking oral medications or taking po. Depakote change to IV. D5W increased from 75ml/hr to 200ml/hr for hypernatremia. Exam Narrative Exam Narrative: General: Lying in bed, not responsive, eyes are closed and he occasionally moans. Otherwise he appears comfortable. HEENT: pupils 3mm ian equal and react to light. Oropharynx with dry mucosa. Lungs: coarse at the bases but otherwise clear bilaterally, normal effort Heart: irregular rhythm, systolic murmur loudest at LUSB. No gallop or rub. Abdomen: Soft, no masses or guarding. Bowel sounds positive in all quadrants. Neuro: Tremor in left arm with fasciculations of muscles in shoulder area ian noted. Objective Last Vital Signs Temp 36.4 C L 11/05/24 11:36 Pulse 54 L 11/05/24 11:36 Resp 16 11/05/24 11:36 BP 122/86 11/05/24 11:45 Pulse Ox 94 11/05/24 11:36 Laboratory Results - last 24 hr 11/04/24 11/04/24 11/04/24 15:22 15:30 16:15 WBC 39.85 H* RBC 4.49 Hgb 14.5 Hct 45.3 MCV 101 H MCH 32.3 MCHC 32.0 RDW 13.7 Plt Count 222 MPV 11.0 Immature Gran % See Differential Neutrophils % 83.0 Band Neutrophils % 5 Lymphocytes % 4.0 Atypical Lymphs % 1 Monocytes % 5.0 Eosinophils % 0.0 Basophils % 0.0 Metamyelocytes % 1 Myelocytes % 1 Nucleated RBC % 0.0 Absolute Neutrophils 35.07 H Absolute Lymphocytes 1.99 Absolute Monocytes 1.99 H Absolute Eosinophils 0.00 Absolute Basophils 0.00 RBC Morphology Normal VBG Lactate 3.7 H* Sodium 161 H* Potassium 4.1 Chloride 118 H Carbon Dioxide 29.8 Anion Gap 13.2 H BUN 92 H* Creatinine 2.7 H Est GFR (CKD-EPI 2020) 23.54 Glucose 194 H Calcium 9.8 Magnesium 3.0 H Total Bilirubin 0.8 AST 26 ALT 55 Alkaline Phosphatase 73 Troponin I 112 H* Total Protein 8.1 Albumin 3.0 L TSH Urine Color Yellow Urine Clarity Clear Urine pH 5.0 Ur Specific [place] >= 1.030 H Urine Protein 30 H Urine Ketones Negative Urine Blood Negative Urine Nitrite Negative Urine Bilirubin Negative Urine Urobilinogen 0.2 Ur Leukocyte Esterase Negative Urine RBC 0-2 Urine WBC Negative Ur Epithelial Cells Negative Urine Crystals Negative Urine Bacteria Negative Urine Casts 3-5 Hyaline Urine Mucus Heavy Urine Other Rare Transitional Ur Culture Indicated? No Urine Glucose Negative Valproic Acid COVID-19 Source Nasopharynx SARS-CoV-2 (PCR) Negative Influenza Type A (PCR) Negative Influenza Type B (PCR) Negative RSV (PCR) Negative 11/04/24 11/04/24 11/04/24 17:10 18:22 18:44 WBC RBC Hgb Hct MCV MCH MCHC RDW Plt Count MPV Immature Gran % Neutrophils % Band Neutrophils % Lymphocytes % Atypical Lymphs % Monocytes % Eosinophils % Basophils % Metamyelocytes % Myelocytes % Nucleated RBC % Absolute Neutrophils Absolute Lymphocytes Absolute Monocytes Absolute Eosinophils Absolute Basophils RBC Morphology VBG Lactate 2.6 H* Sodium 160 H* Potassium 3.8 Chloride 122 H Carbon Dioxide 28.7 Anion Gap 9.3 BUN 90 H* Creatinine 2.6 H Est GFR (CKD-EPI 2020) 24.63 Glucose 200 H Calcium 8.4 L Magnesium Total Bilirubin AST ALT Alkaline Phosphatase Troponin I 104 H* 117 H* Total Protein Albumin TSH Urine Color Urine Clarity Urine pH Ur Specific [place] Urine Protein Urine Ketones Urine Blood Urine Nitrite Urine Bilirubin Urine Urobilinogen Ur Leukocyte Esterase Urine RBC Urine WBC Ur Epithelial Cells Urine Crystals Urine Bacteria Urine Casts Urine Mucus Urine Other Ur Culture Indicated? Urine Glucose Valproic Acid COVID-19 Source SARS-CoV-2 (PCR) Influenza Type A (PCR) Influenza Type B (PCR) RSV (PCR) 11/04/24 11/04/24 11/05/24 20:22 23:18 06:34 WBC 33.78 H* RBC 3.65 L Hgb 12.1 L D Hct 38.2 L MCV 105 H D MCH 33.2 H MCHC 31.7 L RDW 13.8 Plt Count 173 MPV 11.4 H Immature Gran % Neutrophils % Band Neutrophils % Lymphocytes % Atypical Lymphs % Monocytes % Eosinophils % Basophils % Metamyelocytes % Myelocytes % Nucleated RBC % Absolute Neutrophils Absolute Lymphocytes Absolute Monocytes Absolute Eosinophils Absolute Basophils RBC Morphology VBG Lactate Sodium 160 H* Potassium 3.6 Chloride 123 H Carbon Dioxide 29.3 Anion Gap 7.7 BUN 86 H* Creatinine 2.3 H Est GFR (CKD-EPI 2020) 28.53 Glucose 219 H Calcium 8.2 L Magnesium 2.7 H Total Bilirubin AST ALT Alkaline Phosphatase Troponin I 84 H* Total Protein Albumin TSH 0.68 Urine Color Urine Clarity Urine pH Ur Specific [place] Urine Protein Urine Ketones Urine Blood Urine Nitrite Urine Bilirubin Urine Urobilinogen Ur Leukocyte Esterase Urine RBC Urine WBC Ur Epithelial Cells Urine Crystals Urine Bacteria Urine Casts Urine Mucus Urine Other Ur Culture Indicated? Urine Glucose Valproic Acid 10.7 COVID-19 Source SARS-CoV-2 (PCR) Influenza Type A (PCR) Influenza Type B (PCR) RSV (PCR) Time Spent with Patient Time Spent with Patient: 35-49 minutes Time was spent: preparing to see the patient(eg.review tests), obtaining and/or reviewing separately otained hiistory, ordering medications,tests, procedures, referring, communicating with other health pet caregiver, indepentently interpreting results, counseling the patient and care coordination
--- NOTE | 2024-11-05 15:21 | PHA.REVIEW2 ---
Pharmacy Admission Review Admission Clinical Review Admission Pharmacy Review: Discharge planning issues (Acute) Septic shock (Acute) Elevated troponin level not due to acute coronary syndrome (Acute) Acute hyperglycemia (Acute) JOSE (acute kidney injury) (Acute) Complicated UTI (urinary tract infection) (Acute) Fecal impaction (Acute) Bilateral pneumonia (Acute) Acute hypernatremia (Acute) quetiapine Adverse Reaction (Verified 11/04/24 21:03) Unknown Resuscitation Status DNR/DNI Height 5 ft 6 in Weight 61.2 kg Comments Comments/Follow Ups: f/u Scr, Na, renally adjust as needed. Pt getting a palliative care consult. Pharmacy Admission Review Renal Dosing Renal Dosing: Crcl=23 (BMP from today is pending). Current meds ok. Enoxaparin, cefepime, and vanco renally adjusted. BUN 86 mg/dL (7-18) H* 11/04/24 23:18 Creatinine 2.3 mg/dL (0.70-1.30) H 11/04/24 23:18 Medications needing adjustments: Reviewed Anticoagulation Anticoagulation: enoxaparin 30mg [id number] adjusted Hgb 12.1 g/dL (13.5-17.5) L D 11/05/24 06:34 Hct 38.2 % (40.0-50.0) L 11/05/24 06:34 Plt Count 173 10^3/uL (130-400) 11/05/24 06:34 Creatinine 2.3 mg/dL (0.70-1.30) H 11/04/24 23:18 DVT Prophylaxis: Reviewed Medications: Enoxaparin Opiate Usage Evaluate Pain Scale/Pains Meds: N/A (no opiates ordered. Rass score -3. ) Relevant Labs Relevant Labs: Sodium 160 mmol/L (136-145) H* 11/04/24 23:18 Potassium 3.6 mmol/L (3.5-5.1) 11/04/24 23:18 Chloride 123 mmol/L (98-107) H 11/04/24 23:18 Magnesium 2.7 mg/dL (1.8-2.4) H 11/05/24 06:34 Electrolytes, C-Reactive P, ESR: Reviewed (Hypernatremia-receiving Dextrose 5%; trend Na+. Scr=2.3-trend and adjust meds as needed. ) DM Control DM Control: Reviewed Insulin Dosing, Diabetic Medication: [id number]. On sliding scale aspart coverage. Cardiac Review Cardiac Review: Troponin I 84 ng/L (<or=76) H* 11/05/24 06:34 BP, HR, EF%: Reviewed List meds needing interventions: troponins elevated secondary to sepsis demand. QTc Review QTc: N/A IV to PO Switch IV Medications: Reviewed (pt not taking po due to mental status. Valproic acid switched to IV. ) Current Meds Current Medication Order Review: Reviewed Comments: no additional adjustments Pharmacy Antibiotic Review Pharmacy Antibiotic Activity: Reviewed, no change (On vanco/cefepime for b/l PNA & UTI. WBC=33 and blood cultures pending. Will order vanco level for 11/06 with am labs. ) and Renal function adjustment (Cefepime 1g q12h renally adjusted based on scr from 11/04. Vanco 1.5g IV x1 loading dose, then ordered 1g q36h starting 11/06. ) Comments Comments/Follow Ups: f/u Scr, Na, renally adjust as needed. Pt getting a palliative care consult.
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
[2024-11-05] MEDS: Scopolamine 1 MG/3 DAYS PATCH TD (18:12)
[2024-11-05] MEDS: LORazepam 20 MG/10 ML VIAL IV/SC (19:56)
[2024-11-06] MEDS: Normal Saline Flush 10 ML SYR IVP ×5 (05:48→21:39)
[2024-11-06] MEDS: LORazepam 20 MG/10 ML VIAL IV/SC ×3 (05:48→12:25)
--- NOTE | 2024-11-06 11:22 | CMPROGNOTE_ITS ---
Date of service: 11/06/24 Time of Service: 11:33 Care Management Progress Note Progress Note Text Progress Note Text: Daren was lying in bed, and surrounded by family when CM arrived. He appeared comfortable and was resting peacefully. Daren's family denied needing anything at this time. CM will continue to follow. 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 When his condition declined his family wanted him transferred to the hospital to receive a full assessment. After meeting with Palliative Care, they reinstated Comfort Measure and requested that Daren remain at [facility] for end of life care. CM will follow and support Daren and his family through this difficult time. Social Determinants of Health Screening Will the Patient Participate in the Screening?: Unable to obtain
--- NOTE | 2024-11-06 13:36 | CHAPLAIN ---
Daren is on comfort measures. His , kids and grandkids were with him when I visited this morning. They said he appears comfortable to them. The grandsons asked a couple of questions about Daren's care, and hospital care in general. They all seem supportive of Daren and each other. I explained my role and offered support. According to Care Management notes, Daren was transferred here from the [facility] and will remain here for end of life care. I will continue to visit.
[2024-11-06] MEDS: MORPHine 4 MG/ML SYR IV/SC ×3 (14:03→21:39)
--- NOTE | 2024-11-06 15:30 | W.PM.PROGNOT ---
Date of Service Date of service: 11/06/24 Time of Service: 15:30 Assessment and Plan Assessment and plan (1) Septic shock: Start date: 11/04/24 Status: Acute Assessment and plan: On presentation septic shock responsive to IV fluid resuscitation. Sources include bilateral pneumonia and UTI with a history of prostate cancer untreated. Transitioned to WATCH REPAIRER APPRENTICE 11/05 as above, withdrew antibiotics. (2) Fecal impaction: Start date: 11/04/24 Status: Acute Assessment and plan: Manage bowels only if making him uncomortable, which does not appear to be the case. (3) Seizure disorder: Assessment and plan: valproate stopped, manage any symptoms with lorazepam prn. No seizure activity evident. (4) Discharge planning issues: Status: Acute Assessment and plan: Now [facility] after confirmed this was his wishes. Appreciate Kaycee Michelle from Palliative consulting. Prognosis is hours to days Stopping oral meds, including risperidone, has prn haloperidol IV. Subjective Subjective Patient reports: no new complaints; denies diarrhea, vomiting or fever Interval history since last seen: Events: Palliative consult. Made WATCH REPAIRER APPRENTICE 11/05 No concerns per family or nursing. Exam Narrative Exam Narrative: General: Lying in bed, not responsive, eyes are closed, appears comfortable. Lungs: normal effort, breathing with mouth open, oxygen mask in place Heart: irregular rhythm, extremities warm Neuro: No tremor/fasciculations noted. Objective Last Vital Signs Temp 36.4 C L 11/05/24 11:36 Pulse 54 L 11/05/24 11:36 Resp 16 11/05/24 11:36 BP 122/86 11/05/24 11:45 Pulse Ox 94 11/05/24 11:36 Laboratory Results - last 24 hr 11/05/24 16:00 VBG Lactate Cancelled Sodium Cancelled Potassium Cancelled Chloride Cancelled Carbon Dioxide Cancelled Anion Gap Cancelled BUN Cancelled Creatinine Cancelled Est GFR (CKD-EPI 2020) Cancelled Glucose Cancelled Calcium Cancelled Time Spent with Patient Time Spent with Patient: 25-34 minutes Time was spent: preparing to see the patient(eg.review tests), obtaining and/or reviewing separately otained hiistory, referring, communicating with other health manager medicare marketing, indepentently interpreting results and care coordination
[2024-11-06] MEDS: Glycopyrrolate 0.2 MG/1 ML VIAL IVP (21:38)
[2024-11-07] MEDS: Normal Saline Flush 10 ML SYR IVP ×5 (00:45→08:40)
[2024-11-07] MEDS: MORPHine 4 MG/ML SYR IV/SC ×2 (00:45→02:44)
[2024-11-07] MEDS: Glycopyrrolate 0.2 MG/1 ML VIAL IVP ×4 (02:44→10:34)
[2024-11-07] MEDS: MORPHine 2 MG/ML SYR IV/SC ×4 (05:05→10:31)
[2024-11-07] MEDS: LORazepam 20 MG/10 ML VIAL IV/SC ×2 (05:06→06:37)
--- NOTE | 2024-11-07 09:34 | CMPROGNOTE_ITS ---
Date of service: 11/07/24 Time of Service: 09:35 Care Management Progress Note Progress Note Text Progress Note Text: Daren was lying in bed when CM met with him. He appears comfortable and is no longer responding to verbal stimuli. Daren has been started on a morphine drip and is now at 3mg/hr. Daren's family has been in to visit and spent much of the day with him. He has some audible secretions and has scopalamine, hyosciamine and atropine to help address that issue. Kaycee Michelle from Palliative visited with Daren today and made some medication adjustments. Discharge Potential Discharge Needs: Other (end of life care) Plan: Daren was [place] [facility] [place] he was essentially in SPRING REPAIRER HELPER HAND status. When his condition declined his family wanted him transferred to the hospital to receive a full assessment. After meeting with Palliative Care, they reinstated Comfort Measure and requested that Daren remain at [facility] for end of life care. CM will follow and support Daren and his family through this difficult time. Social Determinants of Health Screening Will the Patient Participate in the Screening?: Unable to obtain
[2024-11-07] MEDS: MORPHine 250 MG in Normal Saline 245 ML IV_INF (11:54)
[2024-11-07] MEDS: Hyoscyamine 0.125 MG SL/ORAL/CHEW SL ×3 (12:21→23:37)
--- NOTE | 2024-11-07 14:55 | PCPN_ITS ---
Date of service: 11/07/24 Time of Service: 14:00 Assessment and Plan Assessment and plan (1) Septic shock: Status: Acute Assessment and plan: bilateral PNA and UTI source MICROARRAY SPECIALIST transition on 11/05 (2) Alzheimer dementia: Status: Acute Assessment and plan: contributing to aspiration PNA (3) Palliative care encounter: Status: Acute Assessment and plan: PC available PRN, can be avail to check in on Tuesday if he is still with us suspect hours to days, w/new onset apnea reviewed w/family suspicious that may be able to be left for an hour right now, however can't guarantee, potentially he may even choose to pass when they are out of room; they understand and will do the best they can to be here as this is important to them; palliative sat with Daren Andres left for around 15m doing oral care and sitting bedside (4) Comfort measures only status: Status: Acute Assessment and plan: comfort directed care orders updated in chart oral care provided, able to remove some secretions in mouth, roof of mouth too difficult w/o causing distress; continue suctioning if needed hyosciamine orders to q4h PRN, recommend administered prior to sons return; atropine drops ordered trial these between hyosciamine orders, may administer hyosciamine at 3hr interval PRN if needed today [place] apap ordered for terminal fever PRN continue morphine drip, currently on 3mg/hr, increase as needed, consider bolus prior to any care, increase bolus dose based on response (5) End of life care: Status: Acute Assessment and plan: Daren will remain at [facility] thru EOL - suspect life expectancy hours to days Subjective Subjective Interval history since last seen: Daren remains hospitalized for end of life care; present at start of visit Mckenna Mercedes has started to have periods of apnea, longest lasted 10seconds; no respiratory distress; he does have increased secretions, requiring intermittent suction, is coughing intermittently w/secretions to back of throat; oral care provided frequently today, he seems to be tolerating okay; increased resp rattle sounds, which family would like to reduce if possible. started on a morphine drip today after increased groaning and grimacing, since start these have resolved. current rate is 3mg/hr, he is now comfortable Joe and Mckenna have been alternating sitting bedside with Daren, they are hopeful one of them will be here for his EOL however they need to switch back, Mckenna back home Joe to hospital, it is around an hour and a half drive, they will try to stagger so Daren is only alone for limited time. son Pollo and grandchildren visited and were able to say goodbye Exam Narrative Exam Narrative: General: older adult male, lying in hospital bed, non-responsive to light touch and voice; appears comfortable HEENT: dried secretions on roof of mouth, secretions and peeling skin on tongue and internal oral mucosa, skin peeling on lips Resp: apnea periods throughout visit, no longer than 10 seconds w/Breann Calderon breathing pattern present; intermittent wet cough Ext: warm to touch all extremeties, L radial pulse 2+; no mottling or other skin changes Objective Last Vital Signs Temp 97.5 F L 11/05/24 11:36 Pulse 54 L 11/05/24 11:36 Resp 16 11/05/24 11:36 BP 122/86 11/05/24 11:45 Pulse Ox 94 11/05/24 11:36
--- NOTE | 2024-11-07 15:14 | CHAPLAIN ---
Daren has been resting comfortably. He is nonverbal, and doesn't appear to be responsive to much. His family has been into visit. One son lives in [place] and one near [place]. Daren's lives with their son in [place]. Daren has been living at the [facility]. He is on comfort measures and will remain here for end of life care. Today Daren's and son are taking turns being with him. His said she is ok if she is not here when Daren dies.
[2024-11-07] MEDS: Acetaminophen 650 MG SUPP PR (15:27)
--- NOTE | 2024-11-07 17:37 | W.PM.PROGNOT ---
Date of Service Date of service: 11/07/24 Time of Service: 17:37 Assessment and Plan Assessment and plan (1) Comfort measures only status: Status: Acute Assessment and plan: TACKING STITCH REMOVER since 11/05 PM after presenting with sepsis, after Kaycee Michelle from Palliative reviewed previous advanced directives with family Titrating comfort meds. (2) Seizure disorder: Assessment and plan: valproate stopped, manage any symptoms with lorazepam prn. Still no seizure activity evident. (3) Discharge planning issues: Status: Acute Assessment and plan: Prognosis continues to be hours to days Subjective Subjective Patient reports: denies diarrhea, vomiting or fever Interval history since last seen: No new concerns per family or nursing. Exam Narrative Exam Narrative: General: older adult male, lying in hospital bed, non-responsive to light touch and voice; appears comfortable HEENT: Mouth a little dry, but better, BAGEL MAKER doing mouth care Resp: Breaths heavier today, RN increasing morphine\ CV: RRR Ext: warm to touch all extremeties; no mottling or other skin changes Objective Last Vital Signs Temp 36.4 C L 11/05/24 11:36 Pulse 54 L 11/05/24 11:36 Resp 16 11/05/24 11:36 BP 122/86 11/05/24 11:45 Pulse Ox 94 11/05/24 11:36 Time Spent with Patient Time Spent with Patient: 25-34 minutes Time was spent: obtaining and/or reviewing separately otained hiistory, referring, communicating with other health day care home mother and care coordination
--- NOTE | 2024-11-08 14:54 | W.PM.DDS ---
Date of service: 11/08/24 Time of Service: 14:54 Discharge Plan Disposition Patient Disposition: Discharge Details Reason For Visit: Acute Hypernatremia, Bilateral Pneumonia, JOSE Admit Date/Time: 11/04/24 21:39 Admit Provider: Manuel Mustafa Attending Provider: Manuel Mustafa Primary Care Provider: Tiffanie Houston Hospital Course Hospital Course: NS called me at appx [phone] to report the pt with family at bedside Assessment and plan (1) Comfort measures only status: Status: Acute Assessment and plan: CLAM SHUCKING MACHINE TENDER since 11/05 PM after presenting with sepsis, after Kaycee Michelle from Palliative reviewed previous advanced directives with family Titrating comfort meds. (2) Seizure disorder: Assessment and plan: valproate stopped, manage any symptoms with lorazepam prn. Still no seizure activity evident. (3) Discharge planning issues: Status: Acute Assessment and plan: Prognosis continues to be hours to days Subjective Subjective Patient reports: denies diarrhea, vomiting or fever Interval history since last seen: No new concerns per family or nursing. Date of service: 11/07/24 Time of Service: 14:00 Assessment and Plan Assessment and plan (1) Septic shock: Status: Acute Assessment and plan: bilateral PNA and UTI source CLAM SHUCKING MACHINE TENDER transition on 11/05 (2) Alzheimer dementia: Status: Acute Assessment and plan: contributing to aspiration PNA (3) Palliative care encounter: Status: Acute Assessment and plan: PC available PRN, can be avail to check in on Tuesday if he is still with us suspect hours to days, w/new onset apnea reviewed w/family suspicious that may be able to be left for an hour right now, however can't guarantee, potentially he may even choose to pass when they are out of room; they understand and will do the best they can to be here as this is important to them; palliative sat with Daren Andres left for around 15m doing oral care and sitting bedside (4) Comfort measures only status: Status: Acute Assessment and plan: comfort directed care orders updated in chart oral care provided, able to remove some secretions in mouth, roof of mouth too difficult w/o causing distress; continue suctioning if needed hyosciamine orders to q4h PRN, recommend administered prior to sons return; atropine drops ordered trial these between hyosciamine orders, may administer hyosciamine at 3hr interval PRN if needed today [place] apap ordered for terminal fever PRN continue morphine drip, currently on 3mg/hr, increase as needed, consider bolus prior to any care, increase bolus dose based on response (5) End of life care: Status: Acute Assessment and plan: Daren will remain at [facility] thru EOL - suspect life expectancy hours to day Discharge Data Cause of : Sepsis associated hypotension Discharge Date/Time-TO BE ENTERED AT DEPARTURE: 11/08/24 04:16 Discharge Sum: Prov Provider Admitting clinician: Bladimir Weeks Attending physician on admission: Manuel Mustafa Consults: 11/05/24 10:17 Palliative Care Consult [CONS] Routine Consultation Status:: Follow-up needed Clarification:: Manage/follow per spec. Reason for consult:: sepsis, dementia, poor prognosis. Previous CLAM SHUCKING MACHINE TENDER status, but all family not on board 11/05/24 15:27 Travel Coordinator Consult [CONS] Routine Consultation Status:: Follow-up needed Clarification:: Manage/follow per spec. Reason for consult:: was advent as a child, has not engaged in adult/recent years. not critical for family. now on comfort directed care, will do EOL in hospital Pronouncing clinician: Niko Fields Discharge Sum: Diag PCOD Cause of : Sepsis associated hypotension Contributing Factors (1) Comfort measures only status: (2) Seizure disorder: (3) Discharge planning issues: Discharge Sum: Summary Date and Time Admission Date: 11/04/24 Date of : 11/08/24 Time of : 04:11 Summary Details: as above Additional Data Confirmation of as documented by pronouncing clinician: no pulse, no respirations, no heart sounds and pupils fixed and dilated Family: at bedside Attending/PCP notified?: No Was code activated?: No Autopsy requested?: No motor vehicle examiner notified?: No Organ bank notified?: No Hospice patient?: No
== END 2024-11-08 04:16 | disposition expired | DRG 871 ==
LOC: ER 22:25 → MS 22:27
PROVIDERS: Admitting Provider Family Medicine; Emergency Provider Emergency Medicine Emergency Medical Services; PCP Legal Medicine; Responsible Provider Family Medicine; Visit Provider Family Medicine
DX: A41.9 Sepsis, unspecified organism (principal); J18.9 Pneumonia, unspecified organism; R65.21 Severe sepsis with septic shock; J96.01 Acute respiratory failure with hypoxia; E87.0 Hyperosmolality and hypernatremia; N39.0 Urinary tract infection, site not specified; N17.9 Acute kidney failure, unspecified; F02.C18 Dementia in other diseases classified elsewhere, severe, with other behavioral disturbance; K56.41 Fecal impaction; R73.9 Hyperglycemia, unspecified; G30.8 Other Alzheimer's disease; G40.909 Epilepsy, unspecified, not intractable, without status epilepticus; Z51.5 Encounter for palliative care; C61 Malignant neoplasm of prostate; Z66 Do not resuscitate; R74.8 Abnormal levels of other serum enzymes; Z79.899 Other long term (current) drug therapy; R25.1 Tremor, unspecified
CPT/HCPCS: 00123; 36415; 71250; 80048; 80053; 85027; 87040; 87637; 96361; 96365; 96375; 99291; 70450; 71045; 74176; 80164; 81003; 81015; 83605; 83735; 84443; 84484; 85025; 99223; 99232; J0131; J0692; J1596; J1650; J1815; J2060; J2270; J2543; J3372; J3490; J7060